=== PATIENT | female | born 1960 ===

== ENCOUNTER → 2017-01-20 | Outpatient (CLI) | payer OTHER ==
--- NOTE | 2017-01-21 07:55 | MM ---
Reason for exam: screening (asymptomatic). Last mammogram was performed 1 year and 1 month ago. History: Patient is postmenopausal and had first child at age 48. Benign right US cyst aspiration ea add of the right breast, February 06, 2007. Benign right US cyst aspiration ea add of the right breast, February 06, 2007. Benign right US cyst aspiration of the right breast, February 06, 2007. Cyst aspiration of the right breast. Took estrogen for 3 years. Physical Findings: A clinical breast exam by your physician is recommended on an annual basis and results should be correlated with mammographic findings. MG 3D Screening Mammo W/Cad Bilateral CC and MLO view(s) were taken. Prior study comparison: December 28, 2015, bilateral MG 3d screening mammo w/cad. December 13, 2014, bilateral MG screening mammo w CAD. The breast tissue is heterogeneously dense. This may lower the sensitivity of mammography. There is no discrete abnormality. No significant changes when compared with prior studies. ASSESSMENT: Negative, BI-RAD 1 RECOMMENDATION: Routine screening mammogram of both breasts in 1 year.
== END | disposition home or self-care (01) ==
LOC: RADMAMWWP 09:40
PROVIDERS: ATTEND Internal Medicine Geriatric Medicine
DX: Z12.31 Encounter for screening mammogram for malignant neoplasm of breast (principal)
CPT/HCPCS: 77063; G0202

== ENCOUNTER → 2017-04-03 | Outpatient (CLI) | payer OTHER ==
--- NOTE | 2017-04-03 23:17 | MR ---
EXAMINATION TYPE: MR angio head wo con DATE OF EXAM: 04/03/2017 COMPARISON: 04/10/2015 HISTORY: Follow up from Previous MRI/MRA TECHNIQUE: Time of flight images focusing on the [place] of Shahid were performed without contrast. FINDINGS: There is arterial flow in the anterior middle and posterior cerebral arteries. There is art erial flow in the vertebrobasilar artery system. I see no evidence of aneurysm or neovascularity. The re is metal artifact from surgery near the supraclinoid right internal carotid artery. There is no ma ss effect. I see no evidence of stenosis. The remainder of the exam is unremarkable. IMPRESSION: Negative MR angiogram of the brain. No adverse change compared to old exam. Metal artifact from surge ry in the supraclinoid right internal carotid artery.
--- NOTE | 2017-04-03 23:26 | MR ---
EXAMINATION TYPE: MR brain wo/w con DATE OF EXAM: 04/03/2017 COMPARISON: NONE HISTORY: Follow up from Previous MRI/MRA TECHNIQUE: Multiplanar, multisequence images of the brain and brainstem is performed without and with IV contras t, utilizing 15 mL intravenous MultiHance . FINDINGS: There is a 3 cm irregular shaped area of mixed signal involving the genu right internal ca psule and right posterior frontal lobe consistent with old encephalomalacia. There is no mass effect. There is no midline shift. Brainstem is intact. Corpus callosum is intact. Sella turcica appears nor mal. There is a 2 x 1.5 cm area of metal artifact in the supraclinoid region on the right side from a neurysm clip. The globes are symmetric. There is no sign of retro-orbital mass. The contrast images s how no pathologic enhancement. There is a 3 x 1 cm area of cortical increased signal on the T2 images in the right posterior frontal lobe cortex. This is nonenhancing. There are scattered less than 5 mm foci of increased signal in both parietal lobes at the kaur-white matter junction. Total numbers les s than 10. IMPRESSION: There is some encephalomalacia and metal artifact and postsurgical changes involving the right posterior frontal lobe and extending to the internal capsule. This appears stable compared to o ld MR scan of 04/10/2015. Scattered white matter foci are small at the kaur-white matter junction of b oth cerebral hemispheres and are nonspecific. There is clearing of the fluid in the left maxillary si nus compared to old exam.
== END | disposition home or self-care (01) ==
LOC: RADMRIMAIN 17:24
PROVIDERS: ATTEND Psychiatry & Neurology Neurology
DX: I67.1 Cerebral aneurysm, nonruptured (principal); G93.89 Other specified disorders of brain; R90.89 Other abnormal findings on diagnostic imaging of central nervous system
CPT/HCPCS: 70544; 70553; A9577

== ENCOUNTER → 2017-10-23 | Outpatient (CLI) | payer OTHER ==
--- NOTE | 2017-10-24 07:09 | CT ---
EXAMINATION TYPE: CT abdomen pelvis w con DATE OF EXAM: 10/23/2017 HISTORY: Pelvic pain x3 months. CT DLP: 480.6mGycm Automated Exposure Control for Dose Reduction was Utilized. CONTRAST: CT scan of the abdomen and pelvis is performed with oral and with IV Contrast, patient injected with 100 mL of Omnipaque 300. COMPARISON: CT abdomen and pelvis July 08, 2014.. FINDINGS: LUNG BASES: No significant abnormality is appreciated. LIVER/GB: There is simple appearing cyst measuring 1.5 cm long axis left hepatic lobe axial image 14 redemonstrated. PANCREAS: No significant abnormality is seen. SPLEEN: No significant abnormality is seen. ADRENALS: No significant abnormality is seen. KIDNEYS: No significant abnormality is seen. BOWEL: Oral contrast does not reach level of the terminal ileum making evaluation of distal bowel sub optimal. There is no suspicious small or large bowel dilatation. There is some prominence of fecal ma terial in the right colon. Heterogeneous soft tissue density favors fecal debris in the posterior asp ect of cecum axial image 53, mass or polyp at this level is not excluded though felt less likely. Adv ise colonoscopy correlation if has not been performed in last 3-5 years. UTERUS/ADNEXA: Retroverted uterus is seen. A few scattered pelvic phleboliths are identified. No susp icious adnexal masses are noted. LYMPH NODES: No greater than 1cm abdominal or pelvic lymph nodes are appreciated. OSSEOUS STRUCTURES: No significant abnormality is seen. OTHER: No significant additional abnormality is seen. IMPRESSION: No significant acute finding is seen to account for patient's clinical symptoms. Attentio n to cecum otherwise fairly unremarkable study.
== END | disposition home or self-care (01) ==
LOC: RADCTMAIN 17:56
PROVIDERS: ATTEND Family Medicine
DX: R10.2 Pelvic and perineal pain (principal)
CPT/HCPCS: 74177; Q9967

== ENCOUNTER → 2018-01-22 | Outpatient (CLI) | payer OTHER ==
--- NOTE | 2018-01-22 11:33 | BD ---
EXAMINATION TYPE: Axial Bone Density DATE OF EXAM: 01/22/2018 COMPARISON: NONE CLINICAL HISTORY: Postmenopausal female Height: 61.5 Weight: 136.6 FRAX RISK QUESTIONS: Alcohol (3 or more units per day): no Family History (Parent hip fracture): no Glucocorticoids (More than 3mos): no (Ex: prednisone, prednisolone, methylprednisolone, dexamethasone, and hydrocortisone). History of Fracture in Adulthood: no Secondary Osteoporosis: 1. Type 1 Diabetes: no 2. Hyperthyroidism: no 3. Menopause before 45: no 4. Malnutrition: no 5. Chronic liver disease: no Rheumatoid Arthritis: no Current Tobacco Use: no RISK FACTORS HISTORY OF: Family History of Osteoporosis: yes/ mother Active: yes Diet low in dairy products/other sources of calcium: yes Postmenopausal woman: age 51 Lost more than 2 inches in height since high school: no Frequent falls: no MEDICATIONS: vitamins, omeprazole EXAM MEASUREMENTS: Bone mineral densitometry was performed using the [employer] System. Bone mineral density as measured about the Lumbar spine is: ----- L1-L4(G/cm2): 0.961 T Score Values are as follows: ----- L2: -1.9 ----- L3: -1.6 ----- L4: -1.8 ----- L1-L4: -1.8 Bone mineral density baseline Bone mineral density about the R hip (g/cm2): 0.849 Bone mineral density about the L hip (g/cm2): 0.807 T Score values are as follows: -----R Neck: -1.4 -----L Neck: -1.7 -----R Total: -1.1 -----L Total: -1.1 Bone mineral density has: baseline IMPRESSION: Osteopenia (T Score between -2.5 and -1) overall in low back and both hips.. There is slightly increased risk of fracture and the patient may be considered for treatment. Re-Screen 2-5 years. NOTE: T-SCORE=SD OF THE YOUNG ADULT MEAN.
--- NOTE | 2018-01-23 10:24 | MM ---
Reason for exam: screening (asymptomatic). Last mammogram was performed 1 year ago. History: Patient is postmenopausal and had first child at age 48. Benign right US cyst aspiration ea add of the right breast, February 06, 2007. Benign right US cyst aspiration ea add of the right breast, February 06, 2007. Benign right US cyst aspiration of the right breast, February 06, 2007. Cyst aspiration of the right breast. Took estrogen for 3 years. Physical Findings: A clinical breast exam by your physician is recommended on an annual basis and results should be correlated with mammographic findings. MG 3D Screening Mammo W/Cad Bilateral CC and MLO view(s) were taken. Prior study comparison: January 20, 2017, bilateral MG 3d screening mammo w/cad. December 28, 2015, bilateral MG 3d screening mammo w/cad. The breast tissue is heterogeneously dense. This may lower the sensitivity of mammography. Focal asymmetry central upper right breast. This finding is changed when compared with previous exams. ASSESSMENT: Incomplete: need additional imaging evaluation, BI-RAD 0 RECOMMENDATION: Special view mammogram of the right breast. If lesion persists on supplemental views, image directed ultrasound is recommended. [facility] will attempt to contact patient to return for supplemental views and ultrasound if indicated.
== END | disposition home or self-care (01) ==
LOC: RADMAMWWP 10:20
PROVIDERS: ATTEND Family Medicine
DX: Z12.31 Encounter for screening mammogram for malignant neoplasm of breast (principal); N95.1 Menopausal and female climacteric states; M85.88 Other specified disorders of bone density and structure, other site
CPT/HCPCS: 77063; 77067; 77080

== ENCOUNTER → 2018-01-30 | Outpatient (CLI) | payer OTHER ==
--- NOTE | 2018-02-02 07:38 | MM ---
Reason for exam: additional evaluation requested from abnormal screening. Last mammogram was performed less than 1 month ago. History: Patient is postmenopausal and had first child at age 48. Benign right US cyst aspiration ea add of the right breast, February 06, 2007. Benign right US cyst aspiration ea add of the right breast, February 06, 2007. Benign right US cyst aspiration of the right breast, February 06, 2007. Cyst aspiration of the right breast. Took estrogen for 3 years. Physical Findings: Nurse did not find any significant physical abnormalities on exam. MG 3D Work Up W/Cad RT CC, MLO, and LM view(s) were taken of the right breast. Prior study comparison: January 22, 2018, bilateral MG 3d screening mammo w/cad. January 20, 2017, bilateral MG 3d screening mammo w/cad. The breast tissue is heterogeneously dense. This may lower the sensitivity of mammography. No suspicious abnormality. The previously seen right central middle depth asymmetry appears similar to the exam on 11/18/11 and appears as fibroglandular tissue on additional views. These results were verbally communicated with the patient and result sheet given to the patient on 01/30/18. ASSESSMENT: Benign, BI-RAD 2 RECOMMENDATION: Return to routine screening mammogram schedule for both breasts.
== END | disposition home or self-care (01) ==
LOC: RADMAMWWP 15:21
PROVIDERS: ATTEND Family Medicine
DX: R92.8 Other abnormal and inconclusive findings on diagnostic imaging of breast (principal)
CPT/HCPCS: 77061; 77065

== ENCOUNTER → 2019-02-01 | Outpatient (CLI) | payer OTHER ==
--- NOTE | 2019-02-03 09:13 | MM ---
Reason for exam: screening (asymptomatic). Last mammogram was performed 1 year ago. History: Patient is postmenopausal and had first child at age 48. Benign right US cyst aspiration ea add of the right breast, February 06, 2007. Benign right US cyst aspiration ea add of the right breast, February 06, 2007. Benign right US cyst aspiration of the right breast, February 06, 2007. Cyst aspiration of the right breast. Took estrogen for 3 years. Physical Findings: A clinical breast exam by your physician is recommended on an annual basis and results should be correlated with mammographic findings. MG 3D Screening Mammo W/Cad Bilateral CC and MLO view(s) were taken. Prior study comparison: January 30, 2018, right breast MG 3d work up w/cad RT. January 22, 2018, bilateral MG 3d screening mammo w/cad. The breast tissue is heterogeneously dense. This may lower the sensitivity of mammography. There is chronic nodularity in the left breast. No significant changes when compared with prior studies. ASSESSMENT: Benign, BI-RAD 2 RECOMMENDATION: Routine screening mammogram of both breasts in 1 year.
== END | disposition home or self-care (01) ==
LOC: RADMAMWWP 08:06
PROVIDERS: ATTEND Internal Medicine Geriatric Medicine
DX: Z12.31 Encounter for screening mammogram for malignant neoplasm of breast (principal)
CPT/HCPCS: 77063; 77067

== ENCOUNTER → 2020-04-07 | Outpatient (CLI) | payer OTHER ==
--- NOTE | 2020-04-13 10:17 | MM ---
Reason for exam: screening (asymptomatic). Last mammogram was performed 1 year and 2 months ago. History: Patient is postmenopausal and had first child at age 48. Benign right US cyst aspiration ea add of the right breast, February 06, 2007. Benign right US cyst aspiration ea add of the right breast, February 06, 2007. Benign right US cyst aspiration of the right breast, February 06, 2007. Cyst aspiration of the right breast. Took estrogen for 3 years. Physical Findings: A clinical breast exam by your physician is recommended on an annual basis and results should be correlated with mammographic findings. MG 3D Screening Mammo W/Cad Bilateral CC and MLO view(s) were taken. Prior study comparison: February 01, 2019, bilateral MG 3d screening mammo w/cad. January 30, 2018, right breast MG 3d work up w/cad RT. The breast tissue is heterogeneously dense. This may lower the sensitivity of mammography. Focal asymmetry upper outer left breast anterior third position. This finding is changed when compared with previous exams. ASSESSMENT: Incomplete: need additional imaging evaluation, BI-RAD 0 RECOMMENDATION: Special view mammogram and ultrasound of the left breast. [facility] will attempt to contact patient to return for supplemental views and ultrasound.
== END | disposition home or self-care (01) ==
LOC: RADMAMWWP 15:59
PROVIDERS: ATTEND Internal Medicine Geriatric Medicine
DX: Z12.31 Encounter for screening mammogram for malignant neoplasm of breast (principal)
CPT/HCPCS: 77063; 77067

== ENCOUNTER → 2020-04-21 | Outpatient (CLI) | payer OTHER ==
--- NOTE | 2020-04-25 11:54 | MM ---
Reason for exam: additional evaluation requested from abnormal screening. Last mammogram was performed less than 1 month ago. History: Patient is postmenopausal and had first child at age 48. Benign right US cyst aspiration ea add of the right breast, February 06, 2007. Benign right US cyst aspiration ea add of the right breast, February 06, 2007. Benign right US cyst aspiration of the right breast, February 06, 2007. Cyst aspiration of the right breast. Took estrogen for 3 years. Physical Findings: Nurse did not find any significant physical abnormalities on exam. MG 3D Work Up W/Cad LT Spot compression CC, spot compression MLO, and LM view(s) were taken of the left breast. Prior study comparison: April 07, 2020, bilateral MG 3d screening mammo w/cad. February 01, 2019, bilateral MG 3d screening mammo w/cad. These results were verbally communicated with the patient and result sheet given to the patient on 04/21/20. ASSESSMENT: Probably benign, BI-RAD 3 RECOMMENDATION: Follow-up diagnostic mammogram of the left breast in 6 months.
== END | disposition home or self-care (01) ==
LOC: RADMAMWWP 09:34
PROVIDERS: ATTEND Internal Medicine Geriatric Medicine
DX: R92.8 Other abnormal and inconclusive findings on diagnostic imaging of breast (principal)
CPT/HCPCS: 77061; 77065

== ENCOUNTER → 2020-10-23 | Outpatient (CLI) | payer OTHER ==
--- NOTE | 2020-10-23 14:50 | US ---
EXAMINATION TYPE: US abdomen complete DATE OF EXAM: 10/23/2020 COMPARISON: Correlation CT 07/08/2014 CLINICAL HISTORY: 60-year-old female R10.9 Abdominal pain. TECHNIQUE: Multiple sonographic images of the abdomen are obtained. FINDINGS: Osteopathic Resident notes: Very difficult and limited exam due to overlying bowel gas EXAM MEASUREMENTS: Liver Length: 12.7 cm Gallbladder Wall: 0.25 cm CBD: 0.5 cm Spleen: 9.0 cm Right Kidney: 9.4 x 4.2 x 3.5 cm Left Kidney: 10.7 x 5.8 x 5.0 cm Pancreas: Obscured by bowel gas Liver: Cyst left lobe measuring 2.0 x 1.7 x 2.2 cm (versus 1.6 cm in 2013). Otherwise, unremarkable. Gallbladder: wnl Evidence for sonographic Harvey's sign: No CBD: wnl as visualized Spleen: Obscured by overlying bowel gas Right Kidney: No hydronephrosis. 6 mm echogenic focus of the lower pole. Left Kidney: No hydronephrosis. Upper IVC: wnl Abd Aorta: Atherosclerotic changes visualized. No sonographic evidence for AAA IMPRESSION: 1. Technically difficult exam due to bowel gas. The spleen and pancreas could not be adequately asses sed. 2. A benign 2.2 cm cyst in the left liver lobe has slightly increased from 1.6 cm back in 2013. 3. No gallstones or evidence for acute cholecystitis. 4. Nonobstructive 6 mm right renal calculus.
== END | disposition home or self-care (01) ==
LOC: RADUSWWP 10:25
PROVIDERS: ATTEND Internal Medicine Geriatric Medicine
DX: K76.89 Other specified diseases of liver (principal); N20.0 Calculus of kidney; R14.3 Flatulence
CPT/HCPCS: 76700

== ENCOUNTER → 2020-12-19 | Outpatient (CLI) | payer OTHER ==
--- NOTE | 2020-12-19 12:20 | MM ---
Reason for exam: follow-up at short interval from prior study. Last mammogram was performed 8 months ago. History: Patient is postmenopausal and had first child at age 48. Benign right US cyst aspiration ea add of the right breast, February 06, 2007. Benign right US cyst aspiration ea add of the right breast, February 06, 2007. Benign right US cyst aspiration of the right breast, February 06, 2007. Cyst aspiration of the right breast. Took estrogen for 2 years. Physical Findings: Nurse did not find any significant physical abnormalities on exam. MG 3D Diag Mammo W/Cad LT CC and MLO view(s) were taken of the left breast. Prior study comparison: April 21, 2020, left breast MG 3d work up w/cad LT. April 07, 2020, bilateral MG 3d screening mammo w/cad. The breast tissue is heterogeneously dense. This may lower the sensitivity of mammography. There is no discrete abnormality. No significant new findings when compared with previous films. These results were verbally communicated with the patient and result sheet given to the patient on 12/19/20. ASSESSMENT: Benign, BI-RAD 2 RECOMMENDATION: Return to routine screening mammogram schedule for both breasts. Back on schedule.
== END | disposition home or self-care (01) ==
LOC: RADMAMWWP 09:02
PROVIDERS: ATTEND Internal Medicine Geriatric Medicine
DX: R92.8 Other abnormal and inconclusive findings on diagnostic imaging of breast (principal)
CPT/HCPCS: 77061; 77065

== ENCOUNTER → 2021-03-29 | Outpatient (CLI) | payer OTHER ==
--- NOTE | 2021-03-29 13:39 | XR ---
EXAMINATION TYPE: XR lumbar spine 2 or 3V DATE OF EXAM: 03/29/2021 CLINICAL HISTORY: Lower back pain radiating down both legs. No known injury. TECHNIQUE: Frontal and lateral images of the lumbar spine are obtained. COMPARISON: None FINDINGS: There are 5 lumbar type vertebral bodies identified. The lumbar spine shows satisfactory alignment without evidence of acute fracture or dislocation. Vertebral body heights and disk space he ights are within normal limits. No spondylolisthesis. There is likely facet arthropathy at L4-L5 and L5-S1. Increased colonic fecal debris of the ascending colon. IMPRESSION: 1. No acute fracture or subluxation is seen in the lumbar spine. 2. Facet arthropathy L4-L5 and L5-S1. 2. Increased colonic fecal debris of the ascending colon. Recommend clinical correlation for possible constipation.
== END | disposition home or self-care (01) ==
LOC: RADXRMAIN 11:31
PROVIDERS: ATTEND Internal Medicine Geriatric Medicine
DX: M47.27 Other spondylosis with radiculopathy, lumbosacral region (principal)
CPT/HCPCS: 72100

== ENCOUNTER → 2021-11-30 | Outpatient (CLI) | payer OTHER ==
--- NOTE | 2021-11-30 08:29 | CT ---
EXAMINATION TYPE: CT brain wo con DATE OF EXAM: 11/30/2021 COMPARISON: 06/05/2010 HISTORY: 61-year-old female S09.90XA headaches after head injury TECHNIQUE: Examination was done in axial plane without intravenous contrast. Coronal and sagittal r econstructions performed. CT DLP: 1183 mGycm Automated exposure control for dose reduction was used. FINDINGS: Allowing for mild calvarial artifact, there is no evidence of acute intracranial hemorrhage, acute i schemic changes, mass, mass-effect, or extra-axial fluid collection. There is no effacement of cereb ral sulci or basal subarachnoid cisterns. There is no hydrocephalus. There is no midline shift. Gr ay-white matter distinction is preserved. Unchanged extensive atherosclerotic calcifications M1 segment right MCA. Unchanged cortical and subcortical hypodensity anterior right frontal lobe compatible with encephalom alacia. Overlying anterior right frontal and right orbital craniotomy flap. 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 Benign hyperostosis frontalis interna noted. Mild mucosal thickening ethmoid air cells. Mastoid air cells well pneumatized. IMPRESSION: 1. Redemonstrated anterior frontal and right supraorbital craniotomy flap with underlying encephaloma lacia suggesting prior traumatic insult. 2. There are mild scattered calvarial artifacts. No definite acute intracranial abnormality seen. 3. Extensive atherosclerotic calcifications within the M1 segment right MCA is unchanged. 4. Mild chronic ethmoid and right frontal sinus disease.
== END | disposition home or self-care (01) ==
LOC: RADCTMAIN 06:46
PROVIDERS: ATTEND Internal Medicine Geriatric Medicine
DX: S09.90XA Unspecified injury of head, initial encounter (principal); G93.89 Other specified disorders of brain; J32.2 Chronic ethmoidal sinusitis; J32.1 Chronic frontal sinusitis; I66.01 Occlusion and stenosis of right middle cerebral artery; G44.309 Post-traumatic headache, unspecified, not intractable; X58.XXXA Exposure to other specified factors, initial encounter
CPT/HCPCS: 70450

== ENCOUNTER → 2022-06-10 | Outpatient (CLI) | payer OTHER ==
--- NOTE | 2022-06-10 16:06 | MR ---
EXAMINATION TYPE: MR lumbar spine wo/w con DATE OF EXAM: 06/10/2022 COMPARISON: Lumbar spine x-ray March 29, 2021 HISTORY: Low back pain, pain in hips and sciatic and bilateral buttocks since 2019 TECHNIQUE: Multiplanar, multisequence images of the lumbar spine is performed without and with IV contrast, util izing 7 mL intravenous Gadavist FINDINGS: Sagittal images of the lumbar spine show vertebral body heights and alignment to appear sat isfactory. Multilevel disc desiccation but the disc space heights are maintained. The conus medullar is is normal in position and signal ending at L1-L2 disc space level. The bone marrow signal intensi ty is within normal limits. No abnormal postcontrast enhancement is seen. Axial images show T12-L1 through L3-L4 levels to appear within normal limits. Axial images at L4-L5 level show mild broad disc bulge minimally effacing the anterior thecal sac evi ng with mild to moderate facet arthropathy and ligament flavum hypertrophy effacing posterior lateral thecal sac greater on the left, bilateral neural foramina are patent. Axial images at L5-S1 level show moderate facet arthropathy and ligamentum flavum hypertrophy effacin g left posterior lateral thecal sac. Tiny central disc protrusion minimally effaces the anterior thec al sac. Focal right foraminal disc protrusion causes moderate to severe right-sided neural foraminal narrowing with likely some encroachment on the exiting right L5 nerve sagittal image 11 and axial morgan ge 7. Paraspinal muscle bulk is maintained. IMPRESSION: Some degenerative change of the lower lumbar spine as detailed above.
== END | disposition home or self-care (01) ==
LOC: RADMRIMAIN 13:06
PROVIDERS: ATTEND Internal Medicine Geriatric Medicine
DX: M47.816 Spondylosis without myelopathy or radiculopathy, lumbar region (principal)
CPT/HCPCS: 72158; A9585

== ENCOUNTER → 2022-06-19 | Outpatient (CLI) | payer OTHER ==
[2022-06-19 11:39] VITALS: BP 137/89; PULSE 72; RESP 18; TEMP 98.2
--- NOTE | 2022-06-19 14:10 | P.PAINPG ---
PQRS Measure Charge Sheet Comment: HISTORY OF PRESENT ILLNESS: 62 yr old female as a referral from Dr. Beltran presents today with severe and chronic LBD and BL Sacroiliitis x years secondary to DDD, spondylosis and facet arthropathy without myelopathy for evaluation. Patient states her pain level is currently at 7/10 in intensity, constant, stabbing/sore in character w shooting towards the BL hips, BL thighs. Pain is provoked by staying in one position at bedtime, sitting/walking for periods of 15 min or more. Pain is palliated w PT x 6 wks in 2020, massage integrated w PT, stem-cell injections, meds (Tylenol, Baclofen, Celebrex), +CBD topical, home stretching regimen, repositioning and rest. PMH: Hyperlipidemia, Hypothyroidism, HTN, Migraine HELM. PSH: EGD (2014) SH: Negative x 3 FH: Fa- MVA/ . Mo- Pancreatic CA/ DM/ . Sister- DM. All: See list Meds: see list REVIEW OF ORGAN SYSTEMS: CONSTITUTIONAL: No fevers or chills. No recent weight loss. NEUROLOGICAL: + numbness and tingling along the distal extremities. No seizure disorders or headaches. MUSCULOSKELETAL: + pain PSYCHIATRIC: Denies current depression or suicidal thoughts. Physical Examinations : Constitutional : Cooperative , not in acute distress . Neurologic : Cranial nerve II to XII intact. No focal neurological deficits. Psychiatric : alert & oriented x 3. Matching mood & appropriate affect. Judgment & insight intact. Musculoskeletal : Cervical Spine Motor strength in the deltoid and biceps: Normal right side. Normal Left side Motor strength biceps and the wrist extensors: Normal right side . Normal left side Motor strength in the triceps muscle: Normal right side. Normal left side Deep tendon reflexes: Normal at the biceps. Normal at Brachioradialis. Normal at triceps Vertebral body tenderness to deep palpation over Cervical facet loading test: positive bilaterally Spurling test: positive bilaterally Neck distraction test: positive bilaterally Maurilio sign: positive bilaterally Lumbar spine Motor strength lower extremities ,thigh and legs 5/5 Right side , 5/5 Left side Deep tendon reflexes : Normal Knee Jerk. Normal Ankle Jerk Vertebral body tenderness over Lumbar facet Loading Test: positive Ri ght / positive Left Range of motion of the lumbar spine Flexion 30 degrees, extension 10 degrees Straight Leg Raise test: Left/ Right positive at degree Alfie test: positive right / positive left. Severe tenderness over the Sacroiliac joint on the Right / Left sides Gaenslen test: positive bilaterally Seated flexion test: positive bilaterally. Sacral spine : Severe tenderness over the Sacroiliac joint: right side / left side Range of motion: Flexion of the lumbar spine <60 degrees Range of motion: Extension of the lumbar spine <20 degrees Gaenslen's Test positive BL Alfie test: positive right side < left side BL Thigh Thrust Test Sacral Thrust Test BL Imaging: MRI without contrast of the lumbar spine from 06/10/22 reviewed Assessment/ Plan : BL Sacroiliitis Risks, benefits of procedure discussed and patient verbalized understanding. Denies aspirin or anti- coagulant use or medical history of diabetes. Protocol for discontinuation/ continuation of medications peewee procedure discussed. All questions answered. I have spent greater than 30 minutes on patient care today. Dr Oreilly was available by phone for the evaluation of this patient. The time was used to review the medical records including relevant urine studies and Prescription history (MAPs), review of the available imaging, evaluation and examination of the patient, coordination of care with the medical staff and if applicable referring physicians, as well as creation of the medical record PQRS Narrative: Smoking Status Never smoker Home Medications: Ambulatory Orders Multivitamins, Thera [Theragran] 1 each PO DAILY 03/08/15 Controlled Substance Measures - Controlled Substance Measures Is patient prescribed a controlled substance at discharge?: No
== END ==
LOC: PNWHC3 10:24
PROVIDERS: ATTEND Specialist
DX: M46.1 Sacroiliitis, not elsewhere classified (principal); Z88.6 Allergy status to analgesic agent; Z88.5 Allergy status to narcotic agent
CPT/HCPCS: 99211

== ENCOUNTER → 2022-09-27 | Outpatient (CLI) | payer OTHER ==
--- NOTE | 2022-09-30 08:59 | MM ---
Reason for Exam: Screening (asymptomatic). Last mammogram was performed 2 year(s) and 6 month(s) ago. Patient History: Menarche at age 13. First Full-Term at age 46. Late child-bearing (after 31). Postmenopausal. Estrogen for 2 years until age 47. Cyst Aspiration on the Right side. 02/06/2007, Benign Cyst Aspiration on the right side. 02/06/2007, Benign Cyst Aspiration on the right side. 02/06/2007, Benign Cyst Aspiration on the right side. Risk Values: Angie 5 year model risk: 2.0%. NCI Lifetime model risk: 9.7%. Prior Study Comparison: 04/07/2020 Bilateral Screening Mammogram, [facility]. 04/21/2020 Left Diagnostic Mammogram, [facility]. 12/19/2020 Left Diagnostic Mammogram, [facility]. Tissue Density: The breast tissue is heterogeneously dense. This may lower the sensitivity of mammography. Findings: Analyzed By CAD. There is no suspicious group of microcalcifications or new suspicious mass in either breast. Overall Assessment: Benign, BI-RAD 2 Management: Screening Mammogram of both breasts in 1 year. A clinical breast exam by your physician is recommended on an annual basis and results should be correlated with mammographic findings. Electronically signed and approved by: William Terrell D.O.
== END | disposition home or self-care (01) ==
LOC: RADMAMWWP 07:50
PROVIDERS: ATTEND Internal Medicine Geriatric Medicine
DX: Z12.31 Encounter for screening mammogram for malignant neoplasm of breast (principal); Z78.0 Asymptomatic menopausal state
CPT/HCPCS: 77063; 77067

== ENCOUNTER → 2023-04-29 | Outpatient (CLI) | payer OTHER ==
--- NOTE | 2023-04-29 08:59 | CT ---
EXAMINATION TYPE: CT thoracic spine wo con CT DLP: 1246 mGycm, Automated exposure control for dose reduction was used. DATE OF EXAM: 04/29/2023 7:06 AM COMPARISON: None. CLINICAL INDICATION:Female, 62 years old with history of M54.6 PAIN IN THORACIC SPINE; PHH, thoracic spine pain TECHNIQUE: Axial images of the thoracic spine were obtained without contrast. Coronal and sagittal re formats were performed. FINDINGS: Mild multilevel disc degeneration changes with disc space narrowing, osteophytes and facet joint arthropathy. No evidence for significant spinal canal or neural foraminal stenosis. The thoraci c vertebral bodies have preserved heights and alignment. Intervertebral discs and osseous structures have normal appearance. No evidence of extradural defects nor significant spinal canal narrowing at any thoracic vertebral arabella dy level. Cortical step-off of the sternum felt to relate to motion artifact. Nonobstructing right 4 mm renal calculus. No obstructive uropathy. IMPRESSION: 1. No spinal canal or neural foraminal stenosis is identified. 2. Mild multilevel disc degeneration changes throughout the spine. 3. Cortical step-off of the sternum felt to relate to motion artifact. Correlate with point tenderne ss there is concern for fracture.
== END | disposition home or self-care (01) ==
LOC: RADCTMAIN 06:23
PROVIDERS: ATTEND Orthopaedic Surgery
DX: S40.012A Contusion of left shoulder, initial encounter (principal); M51.34 Other intervertebral disc degeneration, thoracic region; M25.512 Pain in left shoulder
CPT/HCPCS: 72128

== ENCOUNTER → 2023-09-26 | Day surgery (SDC) | payer OTHER ==
--- NOTE | 2023-09-25 09:16 | P.HPOR ---
History of Present Illness H&P Date: 09/25/23 Chief Complaint: Left knee pain The patient is a 63-year-old female presents after injuring her left knee twisting it in November 2022. She is having persistent pain along with intermittent giving way. She is having problems with weightbearing activities. She's been limping. She's tried medications in addition to an injection with persistent symptoms. Review of Systems As per HPI Past Medical History Past Medical History: GERD/Reflux, Osteoarthritis (OA) Additional Past Medical History / Comment(s): HX OF BRAIN ANEURYSM-had surgery, past hx. FREQUENT UTI'S-nothing current, frequent headaches History of Any Multi-Drug Resistant Organisms: None Reported Past Surgical History: Section, Orthopedic Surgery Additional Past Surgical History / Comment(s): LAPAROSCOPY, repair of BRAIN ANEURYSM w/titanium coil. right knee arthroscopy Past Anesthesia/Blood Transfusion Reactions: Motion Sickness, Postoperative Nausea & Vomiting (PONV) Additional Past Anesthesia/Blood Transfusion Reaction / Comment(s): woke up once nauseated from anesthesia Smoking Status: Never smoker - Past Family History Mother Family Medical History: No Reported History Medications and Allergies Home Medications Medication Instructions Recorded Confirmed Type Multivitamins, Thera [Theragran] 1 each PO DAILY 03/08/09/23/23 History Celecoxib [CeleBREX] 200 mg PO DAILY 09/23/23 09/23/23 History Ibuprofen [Motrin Ib] 200 mg PO Q6H PRN 09/23/23 09/23/23 History Multivitamins, Thera [Multivitamin 1 tab PO DAILY 09/23/23 09/23/23 History (formulary)] Pantoprazole [Protonix] 40 mg PO DAILY PRN 09/23/23 09/23/23 History Allergies Allergy/AdvReac Type Severity Reaction Status Date / Time acetaminophen [From Vicodin] AdvReac Nausea & Verified 09/23/23 10:31 Vomiting hydrocodone bitartrate AdvReac Nausea & Verified 09/23/23 10:31 [From Vicodin] Vomiting Physical Examination - Knee left Appearance: effusion Effusion grade: grade 1 Tenderness with palpation: medial, peripatellar Pain: throughout ROM Gait: limping ROM: extension: -10 degrees ROM: flexion: 120 degrees Crepitus with motion: Yes Strength: extension: 5/5 Strength: flexion: 5/5 Meniscal tests: medial meniscal tests: positive, medial joint line pain: positive Results The patient is a well-developed well-nourished female approximately 5 foot 2, 148 pounds of mesomorphic habitus. HEENT exam is nonfocal, neck is supple. She has painless passive motion of her left hip. Straight leg raise is negative. On examination of her left knee, she is tender about the medial joint line along with the medial and lateral patellar facets. She has a mild effusion. Collaterals were stable, Katlyn was negative, Michelle elicits medial pain. Her distal neurovascular appears intact in the left lower extremity. - Diagnostic results Knee MRI: image reviewed (MRI of the left knee is reviewed and shows evidence of a posterior medial meniscal tear in the whitewhite junction.) Assessment and Plan Assessment: Left knee internal derangement/symptomatic medial meniscal tear Plan: I talked to the patient at length regarding her condition along with treatment options. At this point she is having persistent pain and mechanical symptoms despite attempted conservative measures. After a thorough discussion she opts to proceed with surgery. We'll plan to proceed with left knee arthroscopy with probable partial medial meniscectomy. We will likely perform that as an outpatient procedure. Risks and benefits were discussed at length in layman's terms.
[~2023-09-26] MED LIST: Acetaminophen-Codeine 300-30mg TAB ONE; Acetaminophen-Codeine 300-30mg TAB PO ONE; DEXAMETHASONE SOD PHOSPHATE 4 MG/ML 1 ML VIAL IVP ONE; EPINEPHrine (PF) 1 ML in SODIUM CHLORIDE 0.9% IRRIGATIO 3,000 ML IRRIGATION ONE; FAMOTIDINE 20 MG/2 ML VIAL IVP ONE; KETOROLAC 15 MG/ML 1 ML VIAL ONE; LACTATED RINGERS 1,000 ML IV SCH; LIDOCAINE 1% INJ 10MG/ML (20 ML MDV) ONE; MIDAZOLAM 2 MG/2 ML VIAL IV PRN; MIDAZOLAM 2 MG/2 ML VIAL ONE; ONDANSETRON 4 MG/2 ML VIAL IVP ONE; ONDANSETRON 4 MG/2 ML VIAL ONE; PROPOFOL 10 MG/ML 20 ML VIAL IV ONE; fentaNYL (PF) 50 MCG/ML 2 ML AMP ONE
[2023-09-26 08:39] VITALS: RESP 16
--- NOTE | 2023-09-26 10:47 | P.OP ---
Date of Procedure: 09/26/23 Preoperative Diagnosis: Left knee internal derangement Postoperative Diagnosis: Left knee posterior medial meniscal tear/middle one third lateral meniscal tear Procedure(s) Performed: Left knee arthroscopic partial medial meniscectomy/partial lateral meniscectomy Anesthesia: MICHELLE Surgeon: Hiren Donis Estimated Blood Loss (ml): 10 Pathology: none sent Condition: stable Disposition: PACU Indications for Procedure: The patient's a 63-year-old female who presents with progressive left knee pain and mechanical symptoms after previous twisting injury despite attempted conservative measures. A discussion of the risks and benefits of operative intervention versus continued conservative measures was made with the patient. She opted to proceed with surgery. Operative risks to include infection, neurovascular injury, development of blood clots, possible incomplete resolution of symptoms, possible worsening symptoms and need for subsequent procedures was discussed. Informed consent was obtained. Operative Findings: As below Description of Procedure: The patient was brought to the operating room, and after induction of general anesthesia examined the left knee. Collaterals were stable, Katlyn was negative, and posterior drawer was negative. The left lower extremity was prepped and draped in a normal fashion. A superior lateral portal was made through a 3 mm skin incision superior and lateral to the patella. This was used for outflow. A lateral portal was made through a 5 mm vertical skin incision lateral to the patella tendon above the joint line. Diagnostic arthroscopy was performed. On inspection of the medial compartment, a complex tear involving the posterior horn of the medial meniscus in the white-red junction was noted. This was not amenable to repair.. This was debrided back to a stable base with straight baskets and a motorized shaver. Grade 3/4 chondral changes were noted involving the posterior medial portion medial tibial plateau. Grade 2-3 chondral changes were noted involving the distal medial femoral condyle. On inspection of the notch, the anterior cruciate ligament appeared to be intact. On inspection of the lateral compartment, a radial tear involving the middle one third of the lateral meniscus in the white-white junction was noted. This was debrided back to stable base with a motorized shaver.. On inspection of the patellofemoral articulation there was chondral fibrillation however no loose chondral fragments.. The gutters were clear debris. The knee was then thoroughly irrigated. The portals were closed with Steri-Strips. A sterile dressing was applied in addition to a compression stocking. The patient was awoken from general anesthesia and transferred to recovery room in good condition. Blood loss was estimated at 10 mL. No complications were incurred.
[2023-09-26] MEDS: fentaNYL (PF) 50 MCG/ML 2 ML AMP IV PRN ×2 (11:03→11:25)
[2023-09-26 11:04] VITALS: TEMP 97.4
[2023-09-26 12:41] VITALS: BP 116/75; PULSE 65
== END | disposition home or self-care (01) ==
LOC: OR 08:05
PROVIDERS: ATTEND Orthopaedic Surgery
DX: S83.242A Other tear of medial meniscus, current injury, left knee, initial encounter (principal); S83.282A Other tear of lateral meniscus, current injury, left knee, initial encounter; M19.90 Unspecified osteoarthritis, unspecified site; K21.9 Gastro-esophageal reflux disease without esophagitis; Z79.1 Long term (current) use of non-steroidal anti-inflammatories (NSAID); Z88.5 Allergy status to narcotic agent; X58.XXXA Exposure to other specified factors, initial encounter
CPT/HCPCS: 29880; J2250; J1100; J2405; J0690; J0171; J2001; J3010; J3490; J1885; J2704

== ENCOUNTER 2024-01-28 07:27 | Day surgery (SDC) | payer OTHER ==
[2024-01-22 10:40] VITALS: BMI 25.5
[2024-01-28 08:03] VITALS: RESP 18; TEMP 96.9
[2024-01-28] MEDS: LIDOCAINE 1% (10MG/ML) FOR IV START INTRADERMA ONE (08:04)
[2024-01-28] MEDS: LACTATED RINGERS 1,000 ML IV SCH (08:04)
[2024-01-28] MEDS ORDERED: ONDANSETRON 4 MG/2 ML VIAL ONE (08:11)
[2024-01-28] MEDS: DEXAMETHASONE SOD PHOSPHATE 4 MG/ML 1 ML VIAL IVP ONE (08:12)
[2024-01-28] MEDS: ONDANSETRON 4 MG/2 ML VIAL IVP ONE (08:13)
[2024-01-28] MEDS ORDERED: PROPOFOL 10 MG/ML 20 ML VIAL IV ONE (08:26)
[2024-01-28] MEDS ORDERED: LIDOCAINE 2% (PF) 20 MG/ML 5 ML VIAL ONE (08:26)
--- NOTE | 2024-01-28 08:51 | P.PCN ---
Date of Procedure: 01/28/24 Procedure(s) Performed: Brief history: Patient is a pleasant 63-year-old pleasant white female scheduled for an elective upper endoscopy as well as colonoscopy as a part of evaluation of longstanding GERD/chronic epigastric postprandial abdominal pain and prior history of colon polyps. Procedure performed: Esophagogastroduodenoscopy with biopsy Colonoscopy with snare polypectomy Preoperative diagnosis: Longstanding history of GERD/epigastric pain History of colon polyps Anesthesia: MAC Procedure: After informed consent was obtained from the patient was brought into the endoscopy unit and IV sedation was administered by anesthesia under continuous monitoring. Initially upper endoscopy was done. The Olympus GF 160 video endoscope was inserted inserted into the mouth and esophagus intubated without any difficulty and was gradually advanced into the stomach and duodenum and carefully examined. The bulb and second part of the duodenum appeared normal. The scope was then withdrawn into the stomach adequately insufflated with air and upon careful examination the antrum had mild gastritis and biopsies were done from this area. Mucosa of the body, cardia and fundus appeared normal. The scope was then withdrawn into the esophagus. Small to moderate-sized hiatal hernia noted. The GE junction was located at 34 cm to the incisors. It appeared regular with no erythema erosions or ulcerations. Rest of the esophagus appeared normal. Patient tolerated the procedure well. At this time the patient continued to remain sedation. Initial digital rectal examination was normal. Olympus CF 160 video colonoscope was then inserted into the rectum and gradually advanced to the cecum without any difficulty. Careful examination was performed as the scope was gradually being withdrawn. The prep was excellent. The cecum, ascending colon, transverse colon, descending colon, appeared normal. In the sigmoid colon there was a 5 mm sessile polyp that was removed by cold snare polypectomy. Scattered sigmoid diverticulosis seen. Sigmoid colon and rectum appeared normal. Retroflexion was performed in the rectum and no lesions were noted. Patient tolerated the procedure well. Impression: 1. Upper endoscopy revealed mild antral gastritis and Small to moderate-sized hiatal hernia 2. Colonoscopy revealed 5 mm sigmoid colon polyp status post cold snare polypectomy and scattered sigmoid diverticulosis Recommendations: Findings of this examination were discussed with the patient as well as her family. She was advised to follow-up with the biopsy results. Continue with Protonix 40 mg daily and follow antireflux measures. If the biopsy reveals adenoma, recommended repeat colonoscopy in 5 years.
[2024-01-28 09:53] VITALS: BP 113/67; PULSE 63
== END 2024-01-28 09:49 | disposition home or self-care (01) ==
LOC: ORWHC2ENDO 07:27
PROVIDERS: ATTEND Internal Medicine Gastroenterology
DX: Z12.11 Encounter for screening for malignant neoplasm of colon (principal); D12.5 Benign neoplasm of sigmoid colon; K29.50 Unspecified chronic gastritis without bleeding; K21.9 Gastro-esophageal reflux disease without esophagitis; K44.9 Diaphragmatic hernia without obstruction or gangrene; K57.30 Diverticulosis of large intestine without perforation or abscess without bleeding; Z86.010 Personal history of colon polyps; Z79.899 Other long term (current) drug therapy
CPT/HCPCS: 88305; 45385; 43239; J1100; J2405; J2704; J2001

== ENCOUNTER → 2024-02-20 | Outpatient (CLI) | payer OTHER ==
--- NOTE | 2024-02-20 16:44 | XR ---
EXAMINATION TYPE: XR foot complete LT DATE OF EXAM: 02/20/2024 4:10 PM CLINICAL INDICATION:Female, 63 years old with history of M25.572 PIAN IN LT ANKLE AND JOINTS OF LT FO OT; PHH COMPARISON: None TECHNIQUE: XR foot complete LT examined in the AP, oblique, and lateral projections. FINDINGS: No evidence of any acute osseous pathology. Mild soft tissue swelling over the dorsal forefoot Multi focal degeneration changes throughout the joints of the foot with osteophyte formation and joint spac e narrowing. IMPRESSION: 1. Mild soft tissue swelling throughout the forefoot suggested on the dorsal aspect. No evidence of fracture. No evidence of acute fracture. 2. Multifocal degeneration changes throughout the joints of the foot.
== END | disposition home or self-care (01) ==
LOC: RADXRMAIN 15:47
PROVIDERS: ATTEND Nurse Practitioner Family
DX: M19.072 Primary osteoarthritis, left ankle and foot (principal); M79.89 Other specified soft tissue disorders